=== PATIENT | male | born 1960 | race Caucasian/White ===

== ENCOUNTER 2023-02-21 13:29 | Inpatient (IN) | payer OTHER ==
[~2023-02-21] VITALS: Ht 175.3 cm; Wt 89.9 kg
[2023-02-21 14:16] LABS: BASOPHILS # (AUTO) 0.1 (0.0-0.1); BASOPHILS % 0.7 % (0.0-1.0); EOSINOPHILS # (AUTO) 0.1 (0.0-0.4); EOSINOPHILS % 1.6 % (0.0-6.0); LYMPHOCYTES # (AUTO) 1.5 (1.0-3.2); LYMPHOCYTES % 20.3 % (18.0-39.1); MEAN CORPUSCULAR HEMOGLOBIN 29.3 pg (28-32); MEAN CORPUSCULAR HGB CONC 33.3 g/dL (31-35); MONOCYTES # (AUTO) 0.4 (0.2-0.8); MONOCYTES % 5.4 % (4.4-11.3); NEUTROPHILS # (AUTO) 5.4 (2.1-6.9); NEUTROPHILS % 71.7 % (38.7-80.0); PLATELET COUNT 324 x10e3/uL (140-360); RED BLOOD COUNT 3.75 x10e6/uL (4.3-5.7); RED CELL DISTRIBUTION WIDTH 15.3 % (11.7-14.4); WHITE BLOOD COUNT 7.45 x10e3/uL (4.8-10.8)
[2023-02-21 14:39] LABS: ALBUMIN 3.2 g/dL (3.5-5.0); ALBUMIN/GLOBULIN RATIO 0.9 (0.8-2.0); ANION GAP 13.9 mmol/L (8-16); CALCIUM 8.5 mg/dL (8.4-10.2); CREATININE, SERUM 3.35 mg/dL (0.72-1.25); MAGNESIUM 2.2 MG/DL (1.3-2.1); POTASSIUM 4.9 mmol/L (3.5-5.1)
[2023-02-21] MEDS ORDERED: FUROSEMIDE INJ 10 MG/ML 2 ML VIAL IV ONE (15:15)
[2023-02-21] MEDS ORDERED: FUROSEMIDE INJ 10 MG/ML 4 ML VIAL IV ONE (15:15)
[2023-02-21] MEDS ORDERED: LABETALOL HCL 5 MG/ML 20ML VIAL IV STA (15:17)
[2023-02-21] MEDS ORDERED: ONDANSETRON HCL INJ 2MG/ML 2ML 2 MG/ML VIAL IV PRN (18:15)
[2023-02-21] MEDS ORDERED: ACETAMINOPHEN 325 MG TAB PO PRN (18:15)
[2023-02-21] MEDS: CLONIDINE HCL 0.1 MG TAB PO PRN (19:02)
[2023-02-21] MEDS: CARVEDILOL 3.125 MG TAB PO SCH (19:03)
[2023-02-21] MEDS: HYDRALAZINE HCL 20 MG/ML VIAL IV PRN (20:19)
[2023-02-21 22:00] VITALS: BP 136/76; PULSE 69; RESP 19; TEMP 97.4; O2SAT 100
[2023-02-21 23:43] VITALS: BP 136/76; PULSE 69; RESP 19; TEMP 97.4; O2SAT 100
[2023-02-21 23:53] VITALS: BP 136/76; PULSE 69; RESP 19; TEMP 97.4; O2SAT 100
[2023-02-22] VITALS (8 sets, daily range): BP systolic 133–196; BP diastolic 82–118; PULSE 75–94; RESP 18–19; TEMP 97.5–98; O2SAT 97–100
[2023-02-22] MEDS: HYDRALAZINE HCL 20 MG/ML VIAL IV PRN (01:34)
[2023-02-22] MEDS: CLONIDINE HCL 0.1 MG TAB PO PRN (05:11)
[2023-02-22 05:23] LABS: BASOPHILS % 0.4 % (0.0-1.0); EOSINOPHILS % 0.4 % (0.0-6.0); HEMATOCRIT 29.9 % (38.2-49.6); HEMOGLOBIN 10.1 g/dL (14.0-18.0); LYMPHOCYTES # (AUTO) 0.7 (1.0-3.2); LYMPHOCYTES % 8.8 % (18.0-39.1); MEAN CORPUSCULAR HEMOGLOBIN 29.1 pg (28-32); MEAN CORPUSCULAR HGB CONC 33.8 g/dL (31-35); MEAN CORPUSCULAR VOLUME 86.2 fL (81-99); MONOCYTES # (AUTO) 0.3 (0.2-0.8); MONOCYTES % 3.9 % (4.4-11.3); NEUTROPHILS # (AUTO) 6.9 (2.1-6.9); NEUTROPHILS % 86.1 % (38.7-80.0); PLATELET COUNT 324 x10e3/uL (140-360); RED BLOOD COUNT 3.47 x10e6/uL (4.3-5.7); RED CELL DISTRIBUTION WIDTH 14.9 % (11.7-14.4); WHITE BLOOD COUNT 7.98 x10e3/uL (4.8-10.8)
[2023-02-22 05:40] LABS: ANION GAP 15.2 mmol/L (8-16); CALCIUM 8.1 mg/dL (8.4-10.2); CREATININE, SERUM 3.24 mg/dL (0.72-1.25); POTASSIUM 5.2 mmol/L (3.5-5.1)
[2023-02-22 06:01] LABS: THYROID STIMULATING HORMONE 5.953 uIU/mL (0.350-4.940)
[2023-02-22] MEDS: CARVEDILOL 3.125 MG TAB PO SCH (09:12)
[2023-02-22] MEDS ORDERED: SOD POLYSTYRENE SULFONATE SUSP 15 GM/60 ML BTL PO ONE (12:15)
[2023-02-22] MEDS ORDERED: HYDRALAZINE HCL 25 MG TAB PO SCH (15:00)
[2023-02-22] MEDS: HYDRALAZINE HCL 25 MG TAB PO SCH ×2 (15:01→20:42)
[2023-02-22] MEDS: ISOSORBIDE DINITRATE 20 MG TAB PO SCH ×2 (15:01→20:43)
[2023-02-22 15:36] LABS: CLARITY,URINE SL CLOUDY (CLEAR); COLOR,URINE YELLOW (YELLOW); KETONES,URINE NEGATIVE (NEGATIVE); LEUKOCYTE ESTERASE ,URINE NEGATIVE (NEGATIVE); NITRITE,URINE NEGATIVE (NEGATIVE); PROTEIN,URINE DIPSTICK >=300 (NEGATIVE); URINE UROBILINOGEN 0.2 mg/dL (0.2 - 1)
[2023-02-22 15:48] LABS: BACTERIA,URINE MODERATE /HPF; TRANSITIONAL EPI CELLS,URINE FEW; WBC,URINE (MAN) 0-5 /HPF (0-5)
[2023-02-22] MEDS ORDERED: FUROSEMIDE INJ 10 MG/ML 4 ML VIAL IV SCH (17:00)
[2023-02-22] MEDS: FUROSEMIDE INJ 10 MG/ML 4 ML VIAL IV SCH ×2 (17:00→17:01)
[2023-02-22] MEDS: CARVEDILOL 12.5 MG TAB PO SCH (17:01)
[2023-02-23] VITALS (7 sets, daily range): BP systolic 124–163; BP diastolic 70–86; PULSE 74–86; RESP 16–20; TEMP 98–99.1; O2SAT 95–100
[2023-02-23 05:58] LABS: HEMATOCRIT 24.7 % (38.2-49.6); HEMOGLOBIN 8.3 g/dL (14.0-18.0)
[2023-02-23 06:25] LABS: ANION GAP 11.4 mmol/L (8-16); CALCIUM 7.7 mg/dL (8.4-10.2); CREATININE, SERUM 3.62 mg/dL (0.72-1.25); PHOSPHORUS 4.9 MG/DL (2.3-4.7); POTASSIUM 4.4 mmol/L (3.5-5.1)
[2023-02-23 06:27] LABS: ALBUMIN 2.4 g/dL (3.5-5.0); BILIRUBIN,DIRECT 0.2 mg/dL (0.0-0.5)
[2023-02-23 06:28] LABS: % IRON SATURATION 22 % (15-50); IRON 39 ug/dL (65-175); TOTAL IRON BINDING CAPACITY 176 ug/dL (261-478); TRANSFERRIN 126 mg/dL (174-364)
[2023-02-23 06:41] LABS: FREE T4 (FREE THYROXINE) 1.2 ng/dL (0.8-1.8); THYROID STIMULATING HORMONE 5.723 uIU/mL (0.350-4.940)
[2023-02-23] MEDS: ISOSORBIDE DINITRATE 20 MG TAB PO SCH ×3 (08:43→21:05)
[2023-02-23] MEDS: HYDRALAZINE HCL 25 MG TAB PO SCH ×4 (08:44→21:08)
[2023-02-23] MEDS: CARVEDILOL 12.5 MG TAB PO SCH ×2 (08:44→16:55)
[2023-02-23] MEDS: FUROSEMIDE INJ 10 MG/ML 4 ML VIAL IV SCH ×2 (08:45→16:55)
[2023-02-23] MEDS: HEPARIN SOD (PORCINE) 5,000 UNIT/ML VIAL SC SCH ×2 (08:51→21:10)
[2023-02-23] MEDS ORDERED: IRON SUCROSE 100 MG in SODIUM CHLORIDE 0.9% 100 ML IV SCH (19:45)
[2023-02-24] VITALS (8 sets, daily range): BP systolic 119–170; BP diastolic 70–90; PULSE 70–81; RESP 17–20; TEMP 97.6–98.5; O2SAT 95–100
[2023-02-24 05:05] LABS: BASOPHILS % 0.4 % (0.0-1.0); EOSINOPHILS # (AUTO) 0.2 (0.0-0.4); EOSINOPHILS % 1.9 % (0.0-6.0); HEMATOCRIT 24.7 % (38.2-49.6); HEMOGLOBIN 8.1 g/dL (14.0-18.0); LYMPHOCYTES # (AUTO) 0.8 (1.0-3.2); LYMPHOCYTES % 9.9 % (18.0-39.1); MEAN CORPUSCULAR HEMOGLOBIN 28.9 pg (28-32); MEAN CORPUSCULAR HGB CONC 32.8 g/dL (31-35); MEAN CORPUSCULAR VOLUME 88.2 fL (81-99); MONOCYTES # (AUTO) 0.5 (0.2-0.8); MONOCYTES % 6.5 % (4.4-11.3); NEUTROPHILS # (AUTO) 6.8 (2.1-6.9); NEUTROPHILS % 81.1 % (38.7-80.0); PLATELET COUNT 275 x10e3/uL (140-360); WHITE BLOOD COUNT 8.36 x10e3/uL (4.8-10.8)
[2023-02-24] MEDS: LEVOTHYROXINE SODIUM 25 MCG TABLET PO SCH (05:24)
[2023-02-24 05:42] LABS: ANION GAP 12.4 mmol/L (8-16); CALCIUM 7.7 mg/dL (8.4-10.2); CREATININE, SERUM 4.31 mg/dL (0.72-1.25); POTASSIUM 4.4 mmol/L (3.5-5.1)
[2023-02-24] MEDS: IRON SUCROSE 100 MG in SODIUM CHLORIDE 0.9% 100 ML IV SCH (09:14)
[2023-02-24] MEDS: FUROSEMIDE INJ 10 MG/ML 4 ML VIAL IV SCH ×2 (09:15→17:00)
[2023-02-24] MEDS: ISOSORBIDE DINITRATE 20 MG TAB PO SCH ×3 (09:16→20:59)
[2023-02-24] MEDS: HYDRALAZINE HCL 25 MG TAB PO SCH ×3 (09:16→21:00)
[2023-02-24] MEDS: CARVEDILOL 12.5 MG TAB PO SCH ×2 (09:17→17:00)
[2023-02-24] MEDS: HEPARIN SOD (PORCINE) 5,000 UNIT/ML VIAL SC SCH ×2 (09:18→20:58)
[2023-02-25] MEDS: HYDRALAZINE HCL 20 MG/ML VIAL IV PRN (00:50)
[2023-02-25 01:11] VITALS: BP 171/85; PULSE 85; RESP 18; TEMP 97.9; O2SAT 97
[2023-02-25 04:10] VITALS: BP 148/91; PULSE 85; RESP 19; TEMP 98.5; O2SAT 96
[2023-02-25 06:02] LABS: CALCIUM 7.8 mg/dL (8.4-10.2); CREATININE, SERUM 4.99 mg/dL (0.72-1.25); POTASSIUM 4.8 mmol/L (3.5-5.1)
[2023-02-25 06:23] LABS: ANION GAP 13.8 mmol/L (8-16)
[2023-02-25] MEDS: LEVOTHYROXINE SODIUM 25 MCG TABLET PO SCH (06:41)
[2023-02-25] MEDS ORDERED: SODIUM CHLORIDE 0.9% 250ML 250 ML ONE (07:44)
[2023-02-25 08:04] VITALS: BP 202/101; PULSE 88; RESP 20; TEMP 99.1; O2SAT 100
[2023-02-25] MEDS: ISOSORBIDE DINITRATE 20 MG TAB PO SCH (08:20)
[2023-02-25] MEDS: FUROSEMIDE INJ 10 MG/ML 4 ML VIAL IV SCH (08:21)
[2023-02-25] MEDS: HYDRALAZINE HCL 25 MG TAB PO SCH (08:21)
[2023-02-25] MEDS: CARVEDILOL 12.5 MG TAB PO SCH (08:22)
[2023-02-25] MEDS: IRON SUCROSE 100 MG in SODIUM CHLORIDE 0.9% 100 ML IV SCH (08:22)
[2023-02-25] MEDS: HEPARIN SOD (PORCINE) 5,000 UNIT/ML VIAL SC SCH (08:24)
[2023-02-25 08:52] VITALS: BP 202/101; PULSE 88; RESP 20; TEMP 99.1; O2SAT 100
[2023-02-25] MEDS ORDERED: CARVEDILOL 12.5 MG TAB PO SCH (10:00)
== END 2023-02-25 12:29 | disposition left against medical advice (07) | DRG 291 ==
LOC: ER 13:37 → ERHOLD 15:24 → MED/SURG3 21:32
PROVIDERS: ADMIT Internal Medicine; ATTEND Internal Medicine
DX: I13.2 Hypertensive heart and chronic kidney disease with heart failure and with stage 5 chronic kidney disease, or end stage renal disease (principal); I50.21 Acute systolic (congestive) heart failure; I31.39 Other pericardial effusion (noninflammatory); N17.9 Acute kidney failure, unspecified; N18.4 Chronic kidney disease, stage 4 (severe); I16.9 Hypertensive crisis, unspecified; E87.5 Hyperkalemia; E87.70 Fluid overload, unspecified; E03.9 Hypothyroidism, unspecified; D50.9 Iron deficiency anemia, unspecified; D63.1 Anemia in chronic kidney disease; R60.0 Localized edema; Z20.822 Contact with and (suspected) exposure to COVID-19
CPT/HCPCS: 36415; 71045; 76770; 80048; 80053; 80076; 81001; 82550; 83540; 83690; 83735; 83880; 83970; 84100; 84165; 84439; 84443; 84466; 84484; 84550; 85014; 85018; 85025; 93005; 93306; 99284; J1644; J1756; J1940; J7050; U0002